=== PATIENT | male | born 1980 | race Caucasian/White ===

== ENCOUNTER 2017-03-05 15:49 | Emergency (ER) | payer OTHER ==
[2017-03-05 15:53] VITALS: BP 133/88; PULSE 90; RESP 20; TEMP 98.1
--- NOTE | 2017-03-05 16:12 | ED ---
Fall HPI - General Chief Complaint: Fall Stated Complaint: Fall. Rib Injury Time Seen by Provider: 03/05/17 15:54 Source: patient, RN notes reviewed Mode of arrival: ambulatory - History of Present Illness Initial Comments: 37-year-old male presents to the emergency Department chief complaint of left- sided rib pain. Patient developed this left-sided rib pain yesterday after he fell off a ladder and hit the left side of his rib cage. Patient states now of pain to touch in the left rib cage. Patient denies any abdominal pain. Patient states that he hasn't had any head injury with this. He denies any other symptoms. He states it's worse if he takes a deep breath or to touch. Patient states she was concerned due to the fact the pain was not improving 3 doctor he should be seen. Patient denies any shortness of breath. Patient denies any nausea or vomiting with this. Patient denies any abdominal pain. Patient states he is not currently having any other symptoms. Patient denies any recent fever, chills, shortness of breath, chest pain, back pain, abdominal pain, nausea vomiting, numbness or tingling, dysuria or hematuria, constipation or diarrhea, headaches or visual changes, or any other current symptoms. - Related Data Previous Rx's Medication Instructions Recorded Cyclobenzaprine [Flexeril] 10 mg PO TID PRN #15 tablet 04/06/16 HYDROcodone/APAP 5-325MG [[place] 5] 1 each PO Q4HR PRN #20 tab 04/06/16 Ibuprofen [Motrin] 600 mg PO Q6HR PRN #20 tab 03/05/17 Allergies Allergy/AdvReac Type Severity Reaction Status Date / Time No Known Allergies Allergy Verified 03/05/17 15:52 Review of Systems ROS Statement: Those systems with pertinent positive or pertinent negative responses have been documented in the HPI. ROS Other: All systems not noted in ROS Statement are negative. Past Medical History Additional Past Medical History / Comment(s): Back Pain; Sciatica History of Any Multi-Drug Resistant Organisms: None Reported Past Surgical History: No Surgical Hx Reported Past Psychological History: No Psychological Hx Reported Smoking Status: Current every day smoker Past Alcohol Use History: Occasional Past Drug Use History: None Reported General Exam Limitations: no limitations General appearance: alert, in no apparent distress Head exam: Present: atraumatic, normocephalic, normal inspection ENT exam: Present: normal exam, mucous membranes moist Neck exam: Present: normal inspection. Absent: tenderness, meningismus, lymphadenopathy Respiratory exam: Present: normal lung sounds bilaterally, chest wall tenderness (Left anterior ribs). Absent: respiratory distress, wheezes, rales, rhonchi, stridor Cardiovascular Exam: Present: regular rate, normal rhythm, normal heart sounds. Absent: systolic murmur, diastolic murmur, rubs, gallop, clicks GI/Abdominal exam: Present: soft, normal bowel sounds. Absent: distended, tenderness, guarding, rebound, rigid Neurological exam: Present: alert, oriented X3 Psychiatric exam: Present: normal affect, normal mood Skin exam: Present: warm, dry, intact, normal color. Absent: rash Course Vital Signs 03/05/17 15:51 Temperature 98.1 F Pulse Rate 90 Respiratory 20 Rate Blood Pressure 133/88 O2 Sat by Pulse 99 Oximetry Medical Decision Making - Medical Decision Making 37-year-old male presents emergency Department chief complaint of left sided rib pain after a fall. X-rays reviewed the touch and acute fracture. Patient appears to have a left rib contusion. This time we discussed using Motrin for pain and ice to the area. This returned present follow-up. Patient stated that she understood all questions have been answered. She will be discharged home. - Radiology Data Radiology results: report reviewed, image reviewed Disposition Clinical Impression: Fall, Contusion of rib on left side Disposition: HOME SELF-CARE Condition: Stable Instructions: Rib Contusion (ED) Additional Instructions: Please use medication as discussed. Please follow up with family doctor if symptoms have not improved over the next two days. Please return to the emergency room if your symptoms increase or worsen or for any other concerns. Prescriptions: Ibuprofen [Motrin] 600 mg PO Q6HR PRN #20 tab PRN Reason: Pain Referrals: Rey Gibson MD [Primary Care Provider] - 1-2 days Time of Disposition: 16:35
--- NOTE | 2017-03-05 16:32 | XR ---
EXAMINATION TYPE: XR ribs LT w pa chest xray DATE OF EXAM: 03/05/2017 4:24 PM COMPARISON: NONE HISTORY: Fall, pain TECHNIQUE: Left RIBS examination 2 projections each and supplemented with a frontal chest. FINDINGS: Lung phillips are clear. No pneumothorax is evident. No displaced rib fractures are identifie d. IMPRESSION: 1. Normal left ribs
== END 2017-03-05 16:51 | disposition home or self-care (01) ==
LOC: EC 15:49
DX: S20.212A Contusion of left front wall of thorax, initial encounter (principal); F17.200 Nicotine dependence, unspecified, uncomplicated; W11.XXXA Fall on and from ladder, initial encounter
CPT/HCPCS: 99283

== ENCOUNTER 2017-03-10 16:21 | Emergency (ER) | payer OTHER ==
[2017-03-10 16:31] VITALS: BP 132/88; PULSE 92; RESP 20; TEMP 98.5
--- NOTE | 2017-03-10 17:05 | XR ---
EXAMINATION TYPE: XR chest 2V DATE OF EXAM: 03/10/2017 5:01 PM COMPARISON: NONE HISTORY: Rib pain TECHNIQUE: Frontal and lateral views of the chest are obtained. FINDINGS: Heart and mediastinum are normal. Lungs are clear. Diaphragm is normal. Bony thorax appear s normal. I see no rib fracture. IMPRESSION: Normal chest
--- NOTE | 2017-03-10 17:18 | ED ---
General Adult HPI - General Chief complaint: Recheck/Abnormal Lab/Rx Stated complaint: Recheck Rib Pain Time Seen by Provider: 03/10/17 16:46 Source: patient, RN notes reviewed Mode of arrival: ambulatory Limitations: no limitations - History of Present Illness Initial comments: patient 37-year-old male who presents emergency room today with a chief complaint of increased rib pain. He does admit that he was seen here in the emergency room recently after a fall. He does admit that he slipped on a ladder hitting a piece of steel on the left side of the ribs. Does admit that he's had pain in this area since. States he was seen here and x-rays given ibuprofen. States been using ibuprofen with little relief. admits the pain is worse with certain movements. He denies any other complaints or symptoms at this time. Patient denies any recent fever, chills, shortness of breath, chest pain, back pain, abdominal pain, nausea or vomiting, numbness or tingling, dysuria or hematuria, constipation or diarrhea, headaches or visual changes, or any other complaints. - Related Data Previous Rx's Medication Instructions Recorded Ibuprofen [Motrin] 600 mg PO Q6HR PRN #20 tab 03/05/17 Acetaminophen-Codeine 300-30mg 1 each PO Q6H PRN #20 tablet 03/10/17 [Tylenol #3] Allergies Allergy/AdvReac Type Severity Reaction Status Date / Time No Known Allergies Allergy Verified 03/10/17 16:54 Review of Systems ROS Statement: Those systems with pertinent positive or pertinent negative responses have been documented in the HPI. ROS Other: All systems not noted in ROS Statement are negative. Past Medical History Additional Past Medical History / Comment(s): Back Pain; Sciatica History of Any Multi-Drug Resistant Organisms: None Reported Past Surgical History: No Surgical Hx Reported Past Psychological History: No Psychological Hx Reported Smoking Status: Current every day smoker Past Alcohol Use History: Occasional Past Drug Use History: None Reported General Exam - General Exam Comments Initial Comments: General: The patient is awake and alert, in no distress, and does not appear acutely ill. Eye: Pupils are equal, round and reactive to light, extra-ocular movements are intact. No nystagmus. There is normal conjunctiva bilaterally. No signs of icterus. Ears, nose, mouth and throat: There are moist mucous membranes and no oral lesions. Neck: The neck is supple, there is no tenderness or JVD. Cardiovascular: There is a regular rate and rhythm. No murmur, rub or gallop is appreciated. Respiratory: Lungs are clear to auscultation, respirations are non-labored, breath sounds are equal. No wheezes, stridor, rales, or rhonchi. Gastrointestinal: Soft, non-distended, non-tender abdomen without masses or organomegaly noted. There is no rebound or guarding present. No CVA tenderness. Bowel sounds are unremarkable. Musculoskeletal: Normal ROM. mild tenderness to the left lateral ribs. No swelling. Strength 5/5. Sensation intact. Pulses equal bilaterally 2+. Neurological: A&O x 3. CN II-XII intact, There are no obvious motor or sensory deficits. Coordination appears grossly intact. Speech is normal. Skin: Skin is warm and dry and no rashes or lesions are noted. Psychiatric: Cooperative, appropriate mood & affect, normal judgment. Limitations: no limitations Course Vital Signs 03/10/17 16:29 Temperature 98.5 F Pulse Rate 92 Respiratory 20 Rate Blood Pressure 132/88 O2 Sat by Pulse 100 Oximetry Disposition Clinical Impression: Rib contusion Disposition: HOME SELF-CARE Condition: Good Instructions: Rib Contusion (ED) Additional Instructions: Please use medication as discussed. Please follow-up with family doctor in the next 2 days of symptoms have not improved. Please return to emergency room if the symptoms increase or worsen or for any other concerns. Prescriptions: Acetaminophen-Codeine 300-30mg [Tylenol #3] 1 each PO Q6H PRN #20 tablet PRN Reason: Pain Time of Disposition: 17:12
== END 2017-03-10 17:20 | disposition home or self-care (01) ==
LOC: EC 16:21 → SUPCPDRO 16:21 → EC 17:20
DX: S20.212D Contusion of left front wall of thorax, subsequent encounter (principal); F17.200 Nicotine dependence, unspecified, uncomplicated; W11.XXXD Fall on and from ladder, subsequent encounter
CPT/HCPCS: 71020; 99283

== ENCOUNTER 2024-02-16 21:36 | Emergency (ER) | payer OTHER ==
[2024-02-16 21:53] VITALS: RESP 18
[2024-02-16] MEDS: KETOROLAC 15 MG/ML 1 ML VIAL IM STA (22:19)
[2024-02-16] MEDS: ORPHENADRINE 30 MG/ML 2 ML VIAL IM STA (22:19)
[2024-02-16] MEDS: LIDOCAINE 4% PATCH TOPICAL ONE (22:21)
--- NOTE | 2024-02-16 23:03 | XR ---
EXAM: XR Lumbosacral Spine, 2 or 3 Views CLINICAL HISTORY: ITS.REASON XR Reason: pain TECHNIQUE: Frontal and lateral views of the lumbar spine and sacrum. COMPARISON: No relevant prior studies available. FINDINGS: Vertebrae: Mild degenerative endplate changes. Facet arthropathy. No acute fracture. Normal alignment. Sacrum/coccyx: Unremarkable as visualized. No acute fracture. Disc spaces: No acute findings. No significant narrowing. Soft tissues: Unremarkable. IMPRESSION: No acute findings.
--- NOTE | 2024-02-16 23:15 | ED ---
General Adult HPI - General Chief complaint: Extremity Problem,Nontraumatic Stated complaint: back pain/leg pain Time Seen by Provider: 02/16/24 21:47 Source: patient, RN notes reviewed Mode of arrival: ambulatory Limitations: no limitations - History of Present Illness Initial comments: 44-year-old male presents to the emergency department for evaluation of low back pain radiating down his left leg x 2 weeks. He states that it is progressively been getting worse. He notes that it is worse with movement. He has been utilizing Tylenol with minimal relief. He is able to ambulate without significant difficulty. He does have a history of sciatica and states that this feels similar. He denies fever, chills, loss of bowel or bladder function, sa ddle anesthesia. - Related Data Previous Rx's Medication Instructions Recorded Ibuprofen [Motrin] 600 mg PO Q6HR PRN #20 tab 03/05/17 Acetaminophen-Codeine 300-30mg 1 each PO Q6H PRN #20 tablet 03/10/17 [Tylenol #3] Cyclobenzaprine [Flexeril] 10 mg PO TID #15 tab 02/16/24 Lidocaine 5% Patch [Lidoderm 5% 1 patch TOPICAL DAILY #30 patch 02/16/24 Patch] methylPREDNISolone Dose Pack 4 mg PO DIRECTED #1 packet 02/16/24 [Medrol Dose Pack] Allergies Allergy/AdvReac Type Severity Reaction Status Date / Time No Known Allergies Allergy Verified 03/10/17 16:54 Review of Systems ROS Statement: Those systems with pertinent positive or pertinent negative responses have been documented in the HPI. ROS Other: All systems not noted in ROS Statement are negative. Past Medical History Additional Past Medical History / Comment(s): Back Pain; Sciatica History of Any Multi-Drug Resistant Organisms: None Reported Past Surgical History: No Surgical Hx Reported Past Psychological History: No Psychological Hx Reported Smoking Status: Current every day smoker Past Alcohol Use History: Occasional Past Drug Use History: None Reported General Exam Limitations: no limitations General appearance: alert, in no apparent distress Head exam: Present: atraumatic, normocephalic, normal inspection Eye exam: Present: normal appearance, PERRL, EOMI. Absent: scleral icterus, conjunctival injection, periorbital swelling ENT exam: Present: normal exam, mucous membranes moist Respiratory exam: Present: normal lung sounds bilaterally. Absent: respiratory distress, wheezes, rales, rhonchi, stridor Cardiovascular Exam: Present: regular rate, normal rhythm, normal heart sounds. Absent: systolic murmur, diastolic murmur, rubs, gallop, clicks Extremities exam: Present: normal inspection, full ROM, normal capillary refill, other (DP and PT pulses 2+, no lower extremity edema or erythema). Absent: tenderness, pedal edema, joint swelling, calf tenderness Back exam: Present: full ROM, tenderness (Tenderness palpation of the left paraspinal region) Neurological exam: Present: alert, oriented X3 Psychiatric exam: Present: normal affect, normal mood Skin exam: Present: warm, dry, intact, normal color. Absent: rash Course Vital Signs 02/16/24 02/16/24 21:41 23:22 Temperature 98.1 F 98.3 F Pulse Rate 99 86 Respiratory 18 18 Rate Blood Pressure 123/80 134/84 O2 Sat by Pulse 97 97 Oximetry Medical Decision Making - Medical Decision Making Was pt. sent in by a medical professional or institution (, PA, [employer], urgent care, hospital, or custodial...) When possible be specific @ -No Did you speak to anyone other than the patient for history (EMS, parent, family, police, friend...)? What history was obtained from this source @ -No Did you review nursing and triage notes (agree or disagree)? Why? @ -I reviewed and agree with nursing and triage notes Were old charts reviewed (outside hosp., previous admission, EMS record, old EKG, old radiological studies, urgent care reports/EKG's, custodial records)? Report findings @ -No old charts were reviewed Differential Diagnosis (chest pain, altered mental status, abdominal pain women, abdominal pain men, vaginal bleeding, weakness, fever, dyspnea, syncope, headache, dizziness, GI bleed, back pain, seizure, CVA, palpatations, mental health, musculoskeletal)? @ -Differential Back Pain: Strain, zoster, cauda equina syndrome, epidural abscess, vertebral osteomyelitis, discitis, fracture, subluxation, disc herniation, DJD, spinal stenosis, dissection, AAA, pancreatitis, peptic ulcer disease, pyelonephritis, kidney stone, this is not meant to be an all-inclusive list. EKG interpreted by me (3pts min.). @ -None X-rays interpreted by me (1pt min.). @ -XR lumbar spine shows no acute fracture or dislocation CT interpreted by me (1pt min.). @ -None done U/S interpreted by me (1pt. min.). @ -None done What testing was considered but not performed or refused? (CT, X-rays, U/S, labs)? Why? @ -None What meds were considered but not given or refused? Why? @ -None Did you discuss the management of the patient with other professionals (professionals i.e. , PA, [employer], lab, RT, psych nurse, manager social media, bsw, teacher, workplace rehabilitation officer, case folder)? Give summary @ -No Was smoking cessation discussed for >3mins.? @ -No Was critical care preformed (if so, how long)? @ -No Were there social determinants of health that impacted care today? How? (Homelessness, low income, unemployed, alcoholism, drug addiction, transportation, low edu. Level, literacy, decrease access to med. care, nursing home, rehab)? @ -No Was there de-escalation of care discussed even if they declined (Discuss DNR or withdrawal of care, Hospice)? DNR status @ -No What co-morbidities impacted this encounter? (DM, HTN, Smoking, COPD, CAD, Cancer, CVA, ARF, Chemo, Hep., AIDS, mental health diagnosis, sleep apnea, morbid obesity)? @ -None Was patient admitted / discharged? Hospital course, mention meds given and route, prescriptions, significant lab abnormalities, going to OR and other pertinent info. @ -Discharged. Patient presented to the emergency department for evaluation of low back pain radiating down the left leg. Symptoms have been going on for a round 2 weeks. X-ray of the lumbar spine obtained which shows no acute fracture or dislocation. Patient provided medication for pain control while in the emergency department which provided some relief. Patient does not have any red flag symptoms at this time. Prescription will be sent to patient's pharmacy for lidocaine patches, Flexeril. Advised not to drive or operate heavy machinery while taking the muscle relaxants. Patient expresses understanding. Patient will be discharged home. Patient stable at time of discharge. Case discussed with Dr Gupta Undiagnosed new problem with uncertain prognosis? @ -No Drug Therapy requiring intensive monitoring for toxicity (Heparin, Nitro, Insulin, Cardizem)? @ -No Were any procedures done? @ -No Diagnosis/symptom? @ -Sciatica Acute, or Chronic, or Acute on Chronic? @ -Acute Uncomplicated (without systemic symptoms) or Complicated (systemic symptoms)? @ -Uncomplicated Side effects of treatment? @ -No Exacerbation, Progression, or Severe Exacerbation? @ -No Poses a threat to life or bodily function? How? (Chest pain, [place], [place], pneumonia, PE, COPD, DKA, ARF, appy, cholecystitis, CVA, Diverticulitis, Homicidal, Suicidal, threat to staff... and all critical care pts) @ -No Disposition Clinical Impression: Sciatica Disposition: HOME SELF-CARE Condition: Stable Instructions (If sedation given, give patient instructions): Sciatica (ED) Additional Instructions: Do not drive or operate heavy machinery while taking muscle relaxers. Please follow up with your primary care provider. Return to the emergency department for new or worsening symptoms. Prescriptions: Cyclobenzaprine [Flexeril] 10 mg PO TID #15 tab Lidocaine 5% Patch [Lidoderm 5% Patch] 1 patch TOPICAL DAILY #30 patch methylPREDNISolone Dose Pack [Medrol Dose Pack] 4 mg PO DIRECTED #1 packet Is patient prescribed a controlled substance at d/c from ED?: No Referrals: None,Stated [Primary Care Provider] - 1-2 days
[2024-02-16 23:50] VITALS: BP 134/84; PULSE 86; TEMP 98.3
== END 2024-02-16 23:24 | disposition home or self-care (01) ==
LOC: EC 21:36
DX: M54.40 Lumbago with sciatica, unspecified side (principal); F17.200 Nicotine dependence, unspecified, uncomplicated
CPT/HCPCS: 72100; 99284; 96372 ×2; J2360; J1885

== ENCOUNTER 2024-07-13 13:53 | Emergency (ER) | payer OTHER ==
--- NOTE | 2024-07-13 14:33 | ED ---
Back Pain HPI - General Stated Complaint: Lower back injury Time Seen by Provider: 07/13/24 14:10 Source: patient, RN notes reviewed - History of Present Illness Initial Comments: 44-year-old male presents emergency department chief complaint of lumbar/sacral back pain. Patient states that 2-3 days ago he tripped while going down the stairs. He denies hitting his head or loss conscious at time of the injury. Denies loss of bladder or bowel continence, saddle anesthesias. He denies previous surgeries of his back or other bony complaints. No other acute complaints at this time. - Related Data Previous Rx's Medication Instructions Recorded Ibuprofen [Motrin] 600 mg PO Q6HR PRN #20 tab 03/05/17 Acetaminophen-Codeine 300-30mg 1 each PO Q6H PRN #20 tablet 03/10/17 [Tylenol #3] Cyclobenzaprine [Flexeril] 10 mg PO TID #15 tab 02/16/24 Lidocaine 5% Patch [Lidoderm 5% 1 patch TOPICAL DAILY #30 patch 02/16/24 Patch] methylPREDNISolone Dose Pack 4 mg PO DIRECTED #1 packet 02/16/24 [Medrol Dose Pack] Cyclobenzaprine [Flexeril] 5 mg PO TID PRN #10 tablet 07/13/24 Allergies Allergy/AdvReac Type Severity Reaction Status Date / Time No Known Allergies Allergy Verified 03/10/17 16:54 Review of Systems ROS Statement: Those systems with pertinent positive or pertinent negative responses have been documented in the HPI. ROS Other: All systems not noted in ROS Statement are negative. Past Medical History Additional Past Medical History / Comment(s): Back Pain; Sciatica History of Any Multi-Drug Resistant Organisms: None Reported Past Surgical History: No Surgical Hx Reported Past Psychological History: No Psychological Hx Reported Smoking Status: Current every day smoker Past Alcohol Use History: Occasional Past Drug Use History: None Reported General Exam - General Exam Comments Initial Comments: Visual Physical Exam Vital signs reviewed General: Well-appearing, nontoxic, no acute distress. Head: Normocephalic, atraumatic Eyes: PERRLA, EOMI ENT: Airway patent Chest: Nonlabored breathing Skin: No visual rash, normal skin tone Neuro: Alert and oriented 3 Musculoskeletal: No gross abnormalities General appearance: alert, in no apparent distress Head exam: Present: atraumatic, normocephalic, normal inspection Neck exam: Present: normal inspection. Absent: tenderness, meningismus, lymphadenopathy Respiratory exam: Present: normal lung sounds bilaterally. Absent: respiratory distress, wheezes, rales, rhonchi, stridor Cardiovascular Exam: Present: regular rate, normal rhythm, normal heart sounds. Absent: systolic murmur, diastolic murmur, rubs, gallop, clicks GI/Abdominal exam: Present: soft, normal bowel sounds. Absent: distended, tenderness, guarding, rebound, rigid Extremities exam: Present: normal inspection, full ROM, normal capillary refill. Absent: tenderness, pedal edema, joint swelling, calf tenderness Back exam: Present: normal inspection, full ROM, tenderness (mid-sacral pain to palpation). Absent: CVA tenderness (R), CVA tenderness (L) Neurological exam: Present: alert, oriented X3, CN II-XII intact Skin exam: Present: warm, dry, intact, normal color. Absent: rash Course Vital Signs 07/13/24 07/13/24 15:14 17:09 Temperature 98.2 F 98.2 F Pulse Rate 64 69 Respiratory 16 18 Rate Blood Pressure 123/91 119/85 O2 Sat by Pulse 98 100 Oximetry Medical Decision Making - Medical Decision Making Was pt. sent in by a medical professional or institution (, PA, REFUSE DRIVER, urgent care, hospital, or group home...) When possible be specific @ -No Did you speak to anyone other than the patient for history (EMS, parent, family, police, friend...)? What history was obtained from this source @ -No Did you review nursing and triage notes (agree or disagree)? Why? @ -I reviewed and agree with nursing and triage notes Were old charts reviewed (outside hosp., previous admission, EMS record, old EKG, old radiological studies, urgent care reports/EKG's, group home records)? Report findings @ -No old charts were reviewed Differential Diagnosis (chest pain, altered mental status, abdominal pain women, abdominal pain men, vaginal bleeding, weakness, fever, dyspnea, syncope, headache, dizziness, GI bleed, back pain, seizure, CVA, palpatations, mental health, musculoskeletal)? @ -Differential Back Pain: Strain, zoster, cauda equina syndrome, epidural abscess, vertebral osteomyelitis, discitis, fracture, subluxation, disc herniation, DJD, spinal stenosis, dissection, AAA, pancreatitis, peptic ulcer disease, pyelonephritis, kidney stone, this is not meant to be an all-inclusive list. EKG interpreted by me (3pts min.). @ -None X-rays interpreted by me (1pt min.). @ -XR of the lumbar spine and coccyx and sacrum negative for acute process. CT interpreted by me (1pt min.). @ -None done U/S interpreted by me (1pt. min.). @ -None done What testing was considered but not performed or refused? (CT, X-rays, U/S, labs)? Why? @ -None What meds were considered but not given or refused? Why? @ -None Did you discuss the management of the patient with other professionals (professionals i.e. , PA, REFUSE DRIVER, lab, RT, psych nurse, social media director, security program manager, teacher, complaint investigations officer, case making machine operator)? Give summary @ -No Was smoking cessation discussed for >3mins.? @ -No Was critical care preformed (if so, how long)? @ -No Were there social determinants of health that impacted care today? How? (Homelessness, low income, unemployed, alcoholism, drug addiction, transportation, low edu. Level, literacy, decrease access to med. care, half-way, rehab)? @ -No Was there de-escalation of care discussed even if they declined (Discuss DNR or withdrawal of care, Hospice)? DNR status @ -No What co-morbidities impacted this encounter? (DM, HTN, Smoking, COPD, CAD, Cancer, CVA, ARF, Chemo, Hep., AIDS, mental health diagnosis, sleep apnea, morbid obesity)? @ -None Was patient admitted / discharged? Hospital course, mention meds given and route, prescriptions, significant lab abnormalities, going to OR and other pertinent info. @ -Discharge. 44-year-old male with back pain. On examination patient is resting no signs of acute distress. There is pain to palpation over the sacral spine with no overlying erythema, crepitus. Negative red flag symptoms concerning for more acute pathology such as loss of bladder or bowel continence or saddle anesthesias. X-rays negative for acute process. Patient provided with Toradol and Flexeril emergency department sent a prescription for Flexeril to take only as needed for intermittent muscle spasms over the next few days due to injury. All questions answered at bedside and strict return parameters krystian with the patient he is verbalized understanding. Case discussed with Dr. Gupta. Undiagnosed new problem with uncertain prognosis? @ -No Drug Therapy requiring intensive monitoring for toxicity (Heparin, Nitro, Insulin, Cardizem)? @ -No Were any procedures done? @ -No Diagnosis/symptom? @ -fall, back pain Acute, or Chronic, or Acute on Chronic? @ -acute Uncomplicated (without systemic symptoms) or Complicated (systemic symptoms)? @ uncomplicated Side effects of treatment? @ -No Exacerbation, Progression, or Severe Exacerbation? @ -No Poses a threat to life or bodily function? How? (Chest pain, [place], [place], pneumonia, PE, COPD, DKA, ARF, appy, cholecystitis, CVA, Diverticulitis, Homicidal, Suicidal, threat to staff... and all critical care pts) @ -No Disposition Clinical Impression: Fall, Back pain Disposition: HOME SELF-CARE Condition: Good Instructions (If sedation given, give patient instructions): Acute Low Back Pain (ED) Prescriptions: Cyclobenzaprine [Flexeril] 5 mg PO TID PRN #10 tablet PRN Reason: Muscle Spasm Is patient prescribed a controlled substance at d/c from ED?: No Referrals: None,Stated [Primary Care Provider] - 1-2 days
[2024-07-13 15:16] VITALS: TEMP 98.2
--- NOTE | 2024-07-13 16:12 | XR ---
Lumbar spine. HISTORY: Fall. COMPARISON: 02/16/2024. TECHNIQUE: 3 views of the lumbar spine were obtained. FINDINGS: The lumbar vertebral segments are normal in height and alignment and there is no fracture or subluxat ion. The disc spaces are all maintained in height and there is no significant degenerative disc disease. There is mild sclerosis/facet degeneration in the lower lumbar spine. The sacrum and SI joints are normal. IMPRESSION: No evidence of acute trauma to the lumbar spine.
--- NOTE | 2024-07-13 16:14 | XR ---
Sacrum and coccyx. HISTORY: Fall. Comparison: none. TECHNIQUE: 3 views of the sacrum and coccyx were obtained. FINDINGS: There is no fracture or focal intraosseous abnormality of the sacrum or coccyx. There is no sclerosis or diastasis the SI joints. IMPRESSION: No significant abnormality seen. No evidence of acute trauma.
[2024-07-13] MEDS: CYCLOBENZAPRINE 5 MG TAB PO STA (17:06)
[2024-07-13] MEDS: KETOROLAC 15 MG/ML 1 ML VIAL IM STA (17:06)
[2024-07-13 17:11] VITALS: BP 119/85; PULSE 69; RESP 18
== END 2024-07-13 17:09 | disposition home or self-care (01) ==
LOC: EC 13:53
DX: M54.50 Low back pain, unspecified
CPT/HCPCS: 72100; 72220; 96372; 99283